=== PATIENT | male | born 1965 | race Caucasian/White ===

== ENCOUNTER 2024-04-11 11:49 | Inpatient (IN) | payer OTHER, SELFPAY ==
[2024-04-10 11:54] VITALS: BP 137/96
--- NOTE | 2024-04-10 13:29 | ED.SKININJ ---
HPI-Injury
General
Chief Complaint: Bite
Source: patient
Exam Limitations: none
Time Seen by Provider: 04/10/24 13:14
History of Present Illness-Injury
Initial Injury comments:
58-year-old male presents with cat bite to right arm he sustained today. He states it was early this morning he rake his 2 cats apart from fighting a bit on the right wrist. He now notes increasing redness swelling and pain to the forearm on the
right side. He is not diabetic. Initially seen at the urgent care and sent here for further evaluation. He notes chills but denies measurable fever. He notes increased pain when he tries to move his fingers. No other complaints at this time
Past History
Past History
ED Past Medical History: GERD, HTN and Other (Chronic back pain, Hiatel hernia)
ED Past Surgical History: Orthopedic and Other (Hernia surgery)
Social History
Tobacco: Smoker
Alcohol: Occasional
Drug: None
Personal:
Living: with family
Employment: Not employed
Family History
Family History: Hypertension
Phy Exam
Physical Exam
Physical Exam:
General: Well-appearing male no acute respiratory distress
HEENT: Normocephalic atraumatic
Skin: Multiple puncture wounds to the volar right wrist and dorsal right wrist with surrounding erythema. Erythema spreads to the proximal forearm. This is swollen in this area and tender.
Musculoskeletal exam: Patient is able to move his fingers on his right hand however its painful in his forearm to do so.
Vascular: 2+ radial pulse right wrist
Neurologic: Good sensation right hand
Heart: Regular rate and rhythm
Lungs: Clear no wheeze
Course
Orders/Labs/Results
Orders:
Orders
04/10/24 13:32
Complete Blood Count/With Diff Urgent
Comprehensive Metabolic Panel Urgent
04/10/24 14:00
Ampicillin/Sulbactam 3 G [Unasyn] 3 gm 0.9% Sodium Chloride 100 ml [Nss] 100 ml IV NOW
Abnormal Lab Results
04/10/24
13:32
WBC 12.0 H 10^3/uL
(4.8-10.8)
RBC 4.45 L 10^6/uL
(4.70-6.10)
Absolute Neuts (auto) 9.9 H 10^3/uL
(1.4-6.5)
Absolute Lymphs (auto) 1.1 L 10^3/uL
(1.2-3.4)
Absolute Monos (auto) 0.9 H 10^3/uL
(0.1-0.6)
Neutrophils % 82.2 H %
(42.2-75.2)
Lymphocytes % 9.0 L %
(20.5-51.1)
BUN 22 H mg/dl
(9-20)
Creatinine 0.6 L mg/dL
(0.7-1.3)
Alkaline Phosphatase 30 L U/L
(38-126)
04/10/24 13:32
04/10/24 13:32
Vital Signs
Initial and Last Documented VS:
Initial Vital Signs
Temp Pulse Resp BP Pulse Ox
98.9 F 84 17 137/96 96
04/10/24 11:54 04/10/24 11:54 04/10/24 11:54 04/10/24 11:54 04/10/24 11:54
Last Documented Vital Signs
Temp Pulse Resp BP Pulse Ox
98.9 F 84 18 137/96 96
04/10/24 11:54 04/10/24 11:54 04/10/24 11:54 04/10/24 11:54 04/10/24 11:54
MDM/Problems Addressed
Differential Diagnosis Includes:
Cat bite with surrounding cellulitis to the right forearm. Vitals are stable but he does subjectively note chills. This is rapidly progressed since this morning. will check labs. Consider IV antibiotics. Patient may benefit from admission to
hospital
*Critical Care Note
Total Time (30-74mins, 75-104mins- exclusive of procedures): Not Applicable
Update Note
Update Note:
White blood cell count is 12,000. Concerned about potential rapidly progressing infection of the right forearm secondary to cat bite. Unasyn ordered will admit to hospital
ED Attending Note
-
Portions of this chart may have been created with voice recognition software.� Occasional wrong word or��sound alike� substitutions may have occurred due to the inherent limitations of voice recognition software.
Discharge Plan
Departure
Patient Disposition: Admit
Date of Disposition: 04/10/24
Time of Disposition: 14:22
Admit to: Med/Surg
Presentation/result/management discussed w/ accepting MD/DO: Hospitalist
Discharge Problem:
Cellulitis
Prescriptions:
No Action
meloxicam 15 MG tablet
15 mg PO DAILY
gabapentin 300 MG capsule
300 mg PO TID
omeprazole 20 MG tablet,delayed release (DR/EC)
20 mg PO DAILY
naproxen sodium [Aleve] 220 MG tablet
220 mg PO Q12 PRN (Reason: pain/discomfort)
ibuprofen [Advil] 200 MG tablet
400 mg PO Q6 PRN (Reason: pain/discomfort)
ondansetron 4 MG tablet,disintegrating
4 mg PO TIDPRN PRN (Reason: NAUSEA) Qty: 15 0RF
Referrals:
Pavithra Alva DO [Family Provider] -
Interventions
Interventions:
*Risk Screen - Suicide Last Done: 04/10/24 11:58
*General Assessment Last Done: 04/10/24 13:20
*Neglect/Abuse Screening Last Done: 04/10/24 11:58
ED- Fall Risk Assessment Last Done: 04/10/24 13:20
*ED COVID-19 Vaccine History Last Done: 04/10/24 13:20
ED-Skin Assessment Last Done: 04/10/24 13:20
Discharge Date and Time
Print Language: NEPALESE
[2024-04-10 13:45] LABS: % Basophils 0.2 % (0-2); % Eosinophils 0.8 % (0-6); % Immature Granulocytes 0.2 % (0-0.5); % Monocytes 7.6 % (1.7-9.3); % Neutrophils 82.2 % (42.2-75.2); Absolute Eosinophils 0.1 10^3/uL (0-0.7); Absolute Lymphocytes 1.1 10^3/uL (1.2-3.4); Absolute Monocytes 0.9 10^3/uL (0.1-0.6); Absolute Neutrophils 9.9 10^3/uL (1.4-6.5); Hematocrit 40.2 % (39.0-52.0); Hemoglobin 13.6 g/dL (13.0-18.0); Mean Corp Hgb Conc. 33.8 g/dL (33.0-37.0); Mean Corpuscular Hgb 30.6 pg (27.0-31.0); Mean Corpuscular Volume 90.3 fL (80.0-94.0); Mean Platelet Volume 9.7 fL (7.4-10.4); Nucleated Red Blood Cells % 0 % (-); Platelet Count 226 10^3/uL (130-400); Red Blood Cell Count 4.45 10^6/uL (4.70-6.10); Red Cell Dist. Width 14.3 % (11.5-14.5)
[2024-04-10 13:58] LABS: ALT (SGPT) 23 U/L (0-50); AST (SGOT) 31 U/L (17-59); Albumin 4.6 g/dl (3.5-5.0); Alkaline Phosphatase 30 U/L (38-126); Blood Urea Nitrogen 22 mg/dl (9-20); Calcium 9.2 mg/dl (8.4-10.2); Carbon Dioxide 30 mmol/L (22-30); Chloride 103 mmol/L (98-107); Glucose 96 mg/dl (70-99); Potassium 4.3 mmol/L (3.5-5.1); Sodium 141 mmol/L (135-145); Total Bilirubin 0.6 mg/dl (0.2-1.3); Total Protein 7.2 g/dl (6.3-8.2); eGFR > 60.00
--- NOTE | 2024-04-10 14:35 | HPS.HSE ---
Family Physician
-
Family Physician: Pavithra Alva
Chief Complaint
-
swelling and redness right arm
History of Present Illness
58-year-old male past medical history of hypertension, GERD, hiatal hernia, chronic back pain, presenting with cat bite to the right arm which he sustained today. He notes increasing redness and swelling and pain to the forearm on the right side.
He went to urgent care and was sent to the emergency room. He has chills but denies fever. He has increased pain when he tries to move his fingers.
He smokes a pack of cigarettes every 2 days. He denies alcohol. He uses marijuana sometimes.
Medical History
Past Medical History
Past Medical History: Reports Other (hypertension, GERD, hiatal hernia, chronic back pain,)
Past Surgical History: Reports None
Social History
Tobacco: Smoker
Alcohol: None
Drug: Marijuana
Family History
Family History: Not pertinent
Allergies / Home Medications
Allergies reflects when Allergies were last updated in [facility].
Home Medications with original date entered in [facility]
Allergy/Medication List:
Allergies
Allergy/AdvReac Type Severity Reaction Status Date / Time
venom-honey bee Allergy Intermediate Swelling Verified 04/10/24 12:34
[bee venom (honey bee)]
buprenorphine [From Butrans] Allergy Unknown Verified 04/10/24 12:34
cyclobenzaprine HCl Allergy Hives Verified 04/10/24 12:34
[From Flexeril]
Home Medications
gabapentin 300 mg capsule 300 mg PO TID 04/28/14
ibuprofen 200 mg tablet (Advil) 400 mg PO Q6 PRN pain/discomfort 04/28/14
meloxicam 15 mg tablet 15 mg PO DAILY 04/28/14
naproxen sodium 220 mg tablet (Aleve) 220 mg PO Q12 PRN pain/discomfort 04/28/14
omeprazole 20 mg tablet,delayed release 20 mg PO DAILY 04/28/14
ondansetron 4 mg disintegrating tablet 4 mg PO TIDPRN PRN NAUSEA #15 tabs 04/28/14
Review of Systems
-
History Source: Patient
A 12 point ROS was completed and negative except as noted: Yes
Constitutional: Reports No Symptoms
EENT: Reports No Symptoms
Respiratory: Reports No Symptoms
Cardiac: Reports No Symptoms
Abdomen/GI: Reports No Symptoms
: Reports No Symptoms
Musculoskeletal: Reports No Symptoms
Skin: Reports See HPI
Neurological: Reports No Symptoms
Endocrine: Reports No Symptoms
Hematologic/Lymphatic: Reports No Symptoms
Psych: Reports No Symptoms
Physical Exam
Vital Signs
Vital Signs
Temp Pulse Resp BP Pulse Ox
98.9 F 84 18 137/96 96
04/10/24 11:54 04/10/24 11:54 04/10/24 11:54 04/10/24 11:54 04/10/24 11:54
Physical Exam
General: Well Developed, Well Nourished and No Apparent Distress
HEENT: NormoCephalic, Moist mucous membranes and Atraumatic
Respiratory: Clear
Cardiac: S1/S2 and Regular Rhythm; No Murmur or Rub
GI: Soft, Non Tender, Non Distended and Normal Bowel Sounds; No Organomegaly
Rectal: Deferred by Provider
Musculoskeletal: No Clubbing, No Cyanosis and No Edema
Skin: Other (right forearm erythema ); No Rash
Neuro: Nonfocal/grossly intact
Laboratory Results
-
04/10/24 13:32
04/10/24 13:32
Laboratory Results
Total Bilirubin 0.6 mg/dl (0.2-1.3) 04/10/24 13:32
AST 31 U/L (17-59) 04/10/24 13:32
ALT 23 U/L (0-50) 04/10/24 13:32
Alkaline Phosphatase 30 U/L (38-126) L 04/10/24 13:32
Data Reviewed
-
Lab Data: Labs Reviewed by me
Old Records: Reviewed
Impression/Plan
-
IMPRESSION:
PLAN:
# Cat bite cellulitis of right forearm
-Unasyn
-Toradol for pain
Essential hypertension
GERD/hiatal hernia
-Continue omeprazole
Chronic back pain
-Continue buprenorphine, gabapentin
Active smoker
Marijuana user
Full code
DVT prophylaxis�SCDs
Regular diet
[2024-04-10 15:01] VITALS: BP 134/76
[2024-04-10] MEDS: UNASYN IV ×2 (15:01→21:58)
[2024-04-10 15:02] VITALS: BMI 17.5
[2024-04-10 16:26] VITALS: BP 152/76; BMI 17.9
[2024-04-10] MEDS: NEURONTIN 600 MG PO (21:01)
[2024-04-10 23:22] VITALS: BP 97/47
[2024-04-11] MEDS: UNASYN IV ×4 (03:02→21:57)
[2024-04-11 06:45] LABS: % Basophils 0.3 % (0-2); % Eosinophils 2.1 % (0-6); % Immature Granulocytes 0.4 % (0-0.5); % Lymphocytes 13.2 % (20.5-51.1); Absolute Eosinophils 0.2 10^3/uL (0-0.7); Absolute Lymphocytes 1.5 10^3/uL (1.2-3.4); Absolute Monocytes 1.4 10^3/uL (0.1-0.6); Absolute Neutrophils 8.2 10^3/uL (1.4-6.5); Hematocrit 40.3 % (39.0-52.0); Hemoglobin 13.4 g/dL (13.0-18.0); Mean Corp Hgb Conc. 33.3 g/dL (33.0-37.0); Mean Corpuscular Hgb 30.9 pg (27.0-31.0); Mean Corpuscular Volume 93.1 fL (80.0-94.0); Mean Platelet Volume 10.1 fL (7.4-10.4); Nucleated Red Blood Cells % 0 % (-); Platelet Count 212 10^3/uL (130-400); Red Blood Cell Count 4.33 10^6/uL (4.70-6.10); Red Cell Dist. Width 14.3 % (11.5-14.5); White Blood Cell Count 11.3 10^3/uL (4.8-10.8)
[2024-04-11 06:56] LABS: ALT (SGPT) 18 U/L (0-50); AST (SGOT) 22 U/L (17-59); Albumin 3.8 g/dl (3.5-5.0); Alkaline Phosphatase 27 U/L (38-126); Blood Urea Nitrogen 16 mg/dl (9-20); Calcium 8.8 mg/dl (8.4-10.2); Carbon Dioxide 29 mmol/L (22-30); Chloride 102 mmol/L (98-107); Estimated Creatinine Clearance 86 ml/min; Glucose 109 mg/dl (70-99); Potassium 3.9 mmol/L (3.5-5.1); Sodium 140 mmol/L (135-145); Total Bilirubin 0.8 mg/dl (0.2-1.3); Total Protein 6.2 g/dl (6.3-8.2); eGFR > 60.00
[2024-04-11 07:00] VITALS: BP 126/76
--- NOTE | 2024-04-11 08:13 | W.PN.HOSP.TC ---
Today's Communication/Plan
-
Stat imaging studies of the right forearm
Consult Ortho, keep patient n.p.o. until Ortho sees the patient
IV fluid
Continue with IV antibiotics/elevate forearm
Tetanus shot
monitor right upper extremity pulse/monitor for worsening pain
Start home dose of Subutex to avoid withdrawal
Place the patient back on his home medication including clonazepam and BuSpar
Change status to inpatient/patient will require IV antibiotics
Assessment / Plan
Assessment / Plan
Physical Exam
General: Well Developed, Well Nourished and No Apparent Distress
HEENT: Normocephalic, Moist mucous membranes and Atraumatic
Respiratory: Clear
Cardiac: S1/S2 and Regular Rhythm; No Murmur or Rub
GI: Soft, Non Tender, Non Distended and Normal Bowel Sounds; No Organomegaly
Rectal: No bleeding.
Musculoskeletal: swelling/ erythema/ tenderness , cant extend right fingers.
Skin: No Rash
Neuro: Nonfocal/grossly intact
Psych: calm, no agitation
# Cat bite cellulitis of right forearm
Seems extensive from below right elbow to fingers with swelling and tender right right area, painful limited movements of right fingers.
Will do stat imaging studies, will d/w radiology if CT Vs MRI
Stat consult to ortho, concern for septic arthritis, worsening swelling.
Elevate the forearm
Keep NPO until ortho sees the pt
-c/w high dose Unasyn
- will order Tetanus booster shot
-Toradol for pain
Consult ID, help appreciated
#Essential hypertension
GERD/hiatal hernia
-Continue omeprazole
Chronic pain syndrome with opioid dependency
-Continue buprenorphine, gabapentin
# Depression
c/w Clonazepam and BuSpar
Mood is pleasant
# Active smoker/ Marijuana user
Full code
DVT prophylaxis�SCDs
Regular diet
Total time spent to see the patient on the floor, examine the patient, review data and lab results, discuss treatment plan with patient, nursing staff around 55 minutes
Anticipated Discharge: 24 - 48 hours
Subjective/Interval History
-
Date of Service: April 11, 2024
No sob
No chest pain
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
Objective Data
-
Labs:
Laboratory Results
04/11/24
05:19
WBC 11.3 H
Hgb 13.4
Hct 40.3
Plt Count 212
Sodium 140
Potassium 3.9
Chloride 102
Carbon Dioxide 29
BUN 16
Creatinine 0.7
Glucose 109 H
Calcium 8.8
Total Bilirubin 0.8
AST 22
ALT 18
Alkaline Phosphatase 27 L
Vital Signs:
Vital Signs
Temp Pulse Resp BP Pulse Ox
98.2 F 65 17 97/47 97
04/10/24 23:22 04/10/24 23:22 04/10/24 23:22 04/10/24 23:22 04/10/24 23:22
I&O
04/10/24 04/11/24 04/12/24
06:59 06:59 06:59
Intake Total 180 / 180
Balance 180 / 180
[2024-04-11] MEDS: PROTONIX 40 MG PO (09:15)
[2024-04-11] MEDS: SUBUTEX 8 MG SL ×3 (09:15→21:01)
[2024-04-11] MEDS: D5/0.9% SODIUM CHLORIDE 1000 IV ×2 (09:16→18:55)
[2024-04-11] MEDS: NEURONTIN 600 MG PO ×2 (09:16→20:03)
[2024-04-11] MEDS: BUSPAR 10 MG PO ×3 (09:20→21:01)
--- NOTE | 2024-04-11 10:05 | CON.ORTHO ---
Consultation - Orthopedics
History
HPI: 58-year-old male presented to the emergency department with complaints of right forearm swelling and redness. He was subsequently mated to the medical service for IV antibiotics. Orthopedics consulted for further evaluation and treatment.
Reports that yesterday about 3 AM he was his 2 cats were fighting when he was bitten on his right forearm. He presented to an urgent care yesterday who recommended presentation to the emergency department for further evaluation and
treatment. He does think that the swelling is getting worse. He notes some pain when attempting to flex and extend his fingers in his forearm. Denies any hand pain. Denies significant wrist pain.
Allergies / Home Medications
Past medical history: Hypertension, GERD, hiatal hernia, chronic back pain
Past surgical history. None documented
Family history: Not pertinent
Social history: Smoker daily, occasional marijuana use
Allergy/AdvReac Type Severity Reaction Status Date / Time
venom-honey bee Allergy Intermediate Swelling Verified 04/10/24 12:34
[bee venom (honey bee)]
buprenorphine [From Butrans] Allergy Unknown Verified 04/10/24 12:34
cyclobenzaprine HCl Allergy Hives Verified 04/10/24 12:34
[From Flexeril]
�Medication �Instructions �Recorded
gabapentin 300 mg capsule 600 mg PO BID Pain 04/28/14
ibuprofen 200 mg tablet (Advil) 400 mg PO Q6 PRN pain/discomfort 04/28/14
naproxen sodium 220 mg tablet 220 mg PO Q12 PRN pain/discomfort 04/28/14
(Aleve)
ondansetron 4 mg disintegrating 4 mg PO TIDPRN PRN NAUSEA #15 tabs 04/28/14
tablet
buprenorphine HCl 8 mg sublingual 8 mg sublingual 3XD 04/11/24
tablet
buspirone 10 mg tablet 10 mg PO TID Mental Health/Anxiety 04/11/24
clonazepam 1 mg tablet 1 mg PO BID Mental Health/Anxiety 04/11/24
clonazepam 1 mg tablet 1 mg PO DAILY PRN anxiety 04/11/24
gabapentin 300 mg capsule 600 mg PO PRN PRN neuropathic pain 04/11/24
tizanidine 4 mg capsule 4 mg PO BID PRN pain 04/11/24
Vital Signs / Lab Results
Temp Pulse Resp BP Pulse Ox
98.1 F 64 18 126/76 95
04/11/24 07:00 04/11/24 07:00 04/11/24 07:00 04/11/24 07:00 04/11/24 07:00
04/11/24 05:19
04/11/24 05:19
10 point review systems reviewed and negative unless otherwise stated
General: No acute distress, on telephone, supine in bed
Musculoskeletal right upper extremity
There are several small punctate wounds noted over the distal forearm proximal to the wrist both on the volar and dorsal aspect with some small scabbing
There is no drainage or significant fluctuance palpable
There is some very mild erythema over the mostly volar aspect of forearm to proximal forearm
There is some pain elicited volar forearm with flexion extension of digits
There is no swelling erythema in hand or digits
There is no tenderness palpation over flexor tendon sheath and digits
Sensation is intact to light touch office patient distally
There is really no tenderness palpation along the extensor tendons forearm
There is some mild to moderate tenderness palpation elicited with palpation volar flexor tendons
Patient able to flex and extend elbow without difficulty or significant pain
There is really very minimal to no tenderness palpation over radiocarpal joint there is no micromotion tenderness with passive motion of the radiocarpal joint
Diagnostic studies
None performed
Assessment / Plan
58-year-old male hospital day 1 right forearm cellulitis status post cat bite. Does not appear clinically to have involvement radiocarpal joints. No concerns based on clinical examination currently for septic wrist. Do suspect this is likely a
cellulitis versus myositis of volar forearm. I did speak with hospitalist who is planning on ordering an MRI to rule out fluid collection versus abscess. I would recommend continued IV antibiotics elevation and ice to the right forearm. No plans
for surgical intervention at this time. Will also order plain radiographs to rule out radiopaque foreign bodies. My hope is that this will continue to improve with IV antibiotics. I think the only real surgical indication based on the location of
his discomfort would be a fluid collection or abscess in forearm. Does not appear to involve the radiocarpal joint. There does not appear to be any evidence of pyogenic flexor tenosynovitis in the hand. Will continue to follow clinically.
[2024-04-11] MEDS: KLONOPIN 1 MG PO ×2 (11:11→20:03)
[2024-04-11 11:21] LABS: Erythrocyte Sed Rate 13 mm/hour (0-20)
--- NOTE | 2024-04-11 15:27 | CM ---
met with patient at bedside.patient lives with spouse in 2 story home with adelfo,his bed and bat.he has no dme.his on the second level,he amb i (sometimes uses a cane for cbp)and is I with his adl.he has never had a vn or an episode of ip rehab.
PCP: dr tien donaldson Pharmacy : [facility] in [place]
PMH: htn,gerd,chronic back pain,smoker,occasional marijuana,hiatal hernia
patient is adm following a cart bite with right forearm cellulitis,iv unasyn,ivf,subultex,ortho cs.patient will have no needs when dc home.Plan;home with no needs.
--- NOTE | 2024-04-11 16:52 | CON.ID ---
Consultation
-
Date/Time Consultation Requested: 04/11/24 6:48
Date/Time Consultation Performed: 04/11/24 16:52
Requesting Provider: Dr Thompson
Performing Provider: Dr Dempsey
Reason for Consultation: cat bite cellulitis
Chief Complaint / Past History
Chief Complaint
swelling and redness right arm
History of Present Illness
Mr Marion is a 58 year old male with without significant past medical history and no known liver disease presentd here 04/10 after being bitten by one of his cats breaking up a fight, there has been redness and swelling and tenderness of the R
forearm and limited range of motion of several of the digits. Reports chills but no fevers. No fluctuance
Since arrival here he has been afebrile, bp stable, wbc initially 12 now 11, hgb 13, plt 212, L shift present on arrival now resolved, cr 0.7, t bili 0.8, ast 22, alt 18, crp 27, esr 13, MRI: extensive edema without focal collection or abscess, no
osteo, no foreign bodies, myositis noted, currently on unasyn, had Tdap in the ER, arm elevated on exam.
Past History
Additional Past Medical History:
hypertension, GERD, hiatal hernia, chronic back pain
Additional Past Surgical History:
None
Allergy History:
venom-honey bee [bee venom (honey bee)] Allergy (Intermediate, Verified 04/10/24 12:34)
Swelling
buprenorphine [From Butrans] Allergy (Verified 04/10/24 12:34)
Unknown
cyclobenzaprine HCl [From Flexeril] Allergy (Verified 04/10/24 12:34)
Hives
Medications Reviewed: Yes
Social History
Tobacco: Smoker
Alcohol: None
Drug: Marijuana
Family History
Family History: Not Pertinent
Review of Systems
Review of Systems
General: Chills; Negative Fever
All systems: All other systems were reviewed and were negative
Vital Signs
Temp Pulse Resp BP Pulse Ox
98.1 F 64 18 126/76 95
04/11/24 07:00 04/11/24 07:00 04/11/24 07:00 04/11/24 07:00 04/11/24 07:00
Physical Exam
Physical Exam
Constitutional: No Acute Distress
Cardiovascular: Regular Rate and S1/S2; Negative Murmur or Rub
Pulmonary: Clear and Symmetric; Negative Wheezes, Rales or Rhonchi
Gastrointestinal: Soft, Non Tender, Non Distended and Normal Bowel Sounds
Extremities: Other (mild swelling, erythema of the right arm, puncture aguirre on the wrist, decreased range of motion of several fingers)
Skin: Warm and Dry; Negative Rash or Jaundice
Lab / Diagnostic Study Results
04/11/24 05:19
04/11/24 05:19
Abs Immat Gran (auto) 0.0 10^3/uL (0-0.05) 04/11/24 05:19
Absolute Neuts (auto) 8.2 10^3/uL (1.4-6.5) H 04/11/24 05:19
Absolute Lymphs (auto) 1.5 10^3/uL (1.2-3.4) 04/11/24 05:19
Absolute Monos (auto) 1.4 10^3/uL (0.1-0.6) H 04/11/24 05:19
Absolute Basos (auto) 0.0 10^3/uL (0-0.2) 04/11/24 05:19
Immature Gran % 0.4 % (0-0.5) 04/11/24 05:19
Neutrophils % 72.0 % (42.2-75.2) 04/11/24 05:19
Lymphocytes % 13.2 % (20.5-51.1) L 04/11/24 05:19
Monocytes % 12.0 % (1.7-9.3) H 04/11/24 05:19
Eosinophils % 2.1 % (0-6) 04/11/24 05:19
Basophils % 0.3 % (0-2) 04/11/24 05:19
ESR 13 mm/hour (0-20) 04/11/24 10:48
C-Reactive Protein 27.00 mg/L (0.0-10.00) H 04/11/24 10:48
Assessment / Plan
Cat Bite Cellulitis - provoked bite
Tenosynovitis
- tdap administered in the ER
- unasyn 3 gm iv q6 hours - continue IV pending further clinical improvement
- elevation reviewed with patient
- no known liver disease
- follow physical exam
[2024-04-11 23:22] VITALS: BP 98/62
[2024-04-12] MEDS: D5/0.9% SODIUM CHLORIDE 1000 IV ×2 (02:16→11:22)
[2024-04-12] MEDS: TORADOL 10 MG IV ×2 (02:23→11:27)
[2024-04-12] MEDS: UNASYN IV ×4 (03:26→21:38)
[2024-04-12 05:38] LABS: Hematocrit 36.5 % (39.0-52.0); Hemoglobin 12.1 g/dL (13.0-18.0); Mean Corp Hgb Conc. 33.2 g/dL (33.0-37.0); Mean Corpuscular Hgb 31.1 pg (27.0-31.0); Mean Corpuscular Volume 93.8 fL (80.0-94.0); Platelet Count 187 10^3/uL (130-400); Red Blood Cell Count 3.89 10^6/uL (4.70-6.10); Red Cell Dist. Width 14.4 % (11.5-14.5); White Blood Cell Count 9.1 10^3/uL (4.8-10.8)
[2024-04-12 06:11] LABS: Blood Urea Nitrogen 11 mg/dl (9-20); Calcium 8.4 mg/dl (8.4-10.2); Carbon Dioxide 29 mmol/L (22-30); Chloride 104 mmol/L (98-107); Estimated Creatinine Clearance 100 ml/min; Glucose 113 mg/dl (70-99); Potassium 3.9 mmol/L (3.5-5.1); Sodium 139 mmol/L (135-145); eGFR > 60.00
[2024-04-12] MEDS: NEURONTIN 600 MG PO ×2 (07:36→20:03)
[2024-04-12] MEDS: PROTONIX 40 MG PO (07:36)
[2024-04-12] MEDS: BUSPAR 10 MG PO ×3 (07:36→21:38)
[2024-04-12] MEDS: SUBUTEX 8 MG SL ×3 (07:37→21:38)
--- NOTE | 2024-04-12 07:44 | W.PN.ORTHO ---
Today's Communication / Plan
-
58 yo M right forearm cellulitis/myositis s/p cat bite
MRI was reviewed and no evidence of abscess/fluid collection amenable to I and D
Had a long discussion with the patient. He does have some improvement today in symptoms. Would not recommend any orthopedic intervention in light of improvement clinically and MRI findings
Continue IV antibiotics per ID recs. Would anticipate some drainage of superficial pustules at bite site. If this is the case, could consider betadine soaks
Pain control
Continue elevation/ ice to right upper extremity
Please reach out with questions or concerns
Subjective
.
.:
Patient resting comfortably in bed. Does feel like he has had some improvement. Continues to have some difficulty and associated discomfort when flexing and extending fingers.
Vital Signs and Labs
.
Vital Signs and Labs:
Lab Results
04/12/24 05:08
04/12/24 05:08
Temp Pulse Resp BP Pulse Ox
98.3 F 58 18 98/62 95
04/11/24 23:22 04/11/24 23:22 04/11/24 23:22 04/11/24 23:22 04/11/24 23:22
Physical Exam
-
MSK RUE
Minimal erythema over volar forearm, with some improvement compared to yesterday
Forearm soft and compressible without significant pain
Patient is able to actively incompletely extend fingers with some pain elicited over volar forearm
Small pustules noted over area of cat bit
SILT distally
[2024-04-12 08:37] VITALS: BP 123/71
[2024-04-12] MEDS: KLONOPIN 1 MG PO ×2 (09:12→20:03)
--- NOTE | 2024-04-12 12:56 | W.PN.HOSP.TC ---
Today's Communication/Plan
-
continue IV Abx and RUE elevation
follow ID and Ortho recs
Assessment / Plan
Assessment / Plan
Assessment:
Cat bite cellulitis of right forearm
- s/p tetanus booster
- s/p MRI: Extensive diffuse edema/swelling of the subcutaneous fat in the forearm. No focal collection or abscess of the superficial or deep soft tissues. No evidence osteomyelitis. Subtle intramuscular edema involving the flexor digitorum
superficialis muscle, muscle strain versus possible subtle myositis. There also appears to be tendinosis of the flexor digitorum tendon. Mild degenerative change at the wrist. Findings suggest minor scapholunate dissociation.
- Ortho consulted; recommended forearm elevation. no surgical intervention
- ID following; continue Unasyn.
Essential hypertension
- not on home meds, will monitor
GERD/hiatal hernia
- continue omeprazole
Chronic pain syndrome with opioid dependency
- continue buprenorphine, gabapentin
Depression
- continue Clonazepam and BuSpar
- Mood is pleasant
Active smoker/Marijuana user
DVT ppx: SCDs
Code: Full
Anticipated Discharge: 24 - 48 hours
Subjective/Interval History
-
Date of Service: April 12, 2024
patient reports some improvement, but has some difficulty with flexing/extending fingers
no fevers
Objective Data
-
Labs:
Laboratory Results
04/12/24
05:08
WBC 9.1
Hgb 12.1 L
Hct 36.5 L
Plt Count 187
Sodium 139
Potassium 3.9
Chloride 104
Carbon Dioxide 29
BUN 11
Creatinine 0.6 L
Glucose 113 H
Calcium 8.4
Vital Signs:
Vital Signs
Temp Pulse Resp BP Pulse Ox
98.2 F 75 16 123/71 97
04/12/24 08:37 04/12/24 08:37 04/12/24 08:37 04/12/24 08:37 04/12/24 08:37
I&O
04/11/24 04/12/24 04/13/24
06:59 06:59 06:59
Intake Total 180 / 180 3000 / 3000
Balance 180 / 180 3000 / 3000
Physical Exam
-
General: No Apparent Distress
HEENT: Normocephalic and Atraumatic
Respiratory: Negative Wheezes
Cardiac: Regular Rhythm and S1/S2
GI: Soft
Genito-urinary: No Costovertebral Tender
Musculoskeletal: Other (R forearm edema)
Neuro: AO x 3
Hematologic / Lymphatic: No Lymphadenopathy
Psych: Calm
Data Reviewed
-
Total Time Spent with Patient (in minutes): 42
Labs: Labs Reviewed by me
--- NOTE | 2024-04-12 14:20 | CM ---
Met with patient at bedside.
Dx: cat bite cellulitis
Cont w/IV abx.
no anticipated needs at this time.
PLAN: Home, no needs anticipated
[2024-04-12] MEDS: D5/0.9% SODIUM CHLORIDE IV (14:57)
--- NOTE | 2024-04-12 15:06 | W.PN.UPDATE ---
Update Note
Progress Note Update
I was unable to locate patient in his room, bathroom, visitors area or halls of his floor. RN and community director unsure where he might be.
Chart reviewed and plans unchanged:
Cat Bite Cellulitis - provoked bite
Tenosynovitis
- tdap administered in the ER
- unasyn 3 gm iv q6 hours - continue IV pending further clinical improvement
- elevation reviewed with patient
- no known liver disease
- follow physical exam
Further recommendations pending reevaluation of the patient when he is available.
[2024-04-12 15:36] VITALS: BP 134/73
[2024-04-12 23:13] VITALS: BP 105/56
[2024-04-13] MEDS: UNASYN IV ×4 (03:33→21:32)
[2024-04-13 05:42] LABS: Hematocrit 36.1 % (39.0-52.0); Hemoglobin 11.9 g/dL (13.0-18.0); Mean Corpuscular Hgb 30.1 pg (27.0-31.0); Mean Corpuscular Volume 91.2 fL (80.0-94.0); Mean Platelet Volume 9.8 fL (7.4-10.4); Platelet Count 201 10^3/uL (130-400); Red Blood Cell Count 3.96 10^6/uL (4.70-6.10); Red Cell Dist. Width 14.2 % (11.5-14.5); White Blood Cell Count 7.9 10^3/uL (4.8-10.8)
[2024-04-13 06:03] LABS: Blood Urea Nitrogen 13 mg/dl (9-20); Calcium 8.6 mg/dl (8.4-10.2); Carbon Dioxide 31 mmol/L (22-30); Chloride 103 mmol/L (98-107); Estimated Creatinine Clearance 86 ml/min; Glucose 98 mg/dl (70-99); Potassium 4.1 mmol/L (3.5-5.1); Sodium 142 mmol/L (135-145); eGFR > 60.00
[2024-04-13 07:19] VITALS: BP 115/70
[2024-04-13 07:56] VITALS: BP 123/74
[2024-04-13] MEDS: BUSPAR 10 MG PO ×3 (08:28→21:32)
[2024-04-13] MEDS: KLONOPIN 1 MG PO ×2 (08:28→20:59)
[2024-04-13] MEDS: NEURONTIN 600 MG PO ×2 (08:28→20:59)
[2024-04-13] MEDS: PROTONIX 40 MG PO (08:28)
[2024-04-13] MEDS: SUBUTEX 8 MG SL ×3 (08:28→21:31)
--- NOTE | 2024-04-13 11:02 | PN.CDI ---
CDI
- -
CDI:
Physician Documentation Request
Admit Date: 04/11/24 11:49
Dear Doctor Christophe,
Please review the following and provide your response in the progress notes.
Clinical Indicators:
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
#...pt with BMI < 19 underweight range.
#CBW: 117 lbs 9.6 oz BMI 17.9 underweight range, 04/10.
Based on the above and your clinical assessment, please provide an associated diagnosis related to the abnormal BMI, such as:
BMI <19.o, underweight
BMI is not significant
Other(please specify)
BMI < or = to 19
Underweight
Weight Loss
Cachectic
Anorexia
Use of terms such as suspected, likely, concern for, or probable (associated with a specific diagnosis that is being evaluated, monitored, or treated as if it exists) are acceptable and can be coded in the inpatient setting, when documented at the
time of discharge.
Thank you,
Christina Anaya RN BSN CCDS
CDI Specialist
please contact via tiger text
Please use your independent medical judgment in providing your response.
--- NOTE | 2024-04-13 11:05 | W.PN.HOSP.TC ---
Addendum entered and electronically signed by Rafat Saeed MD 04/13/24 11:07:
BMI <19.o, underweight
Original Note:
Today's Communication/Plan
-
continue IV Abx and RUE elevation
follow ID recs
Assessment / Plan
Assessment / Plan
Assessment:
Cat bite cellulitis of right forearm
- s/p tetanus booster
- s/p MRI: Extensive diffuse edema/swelling of the subcutaneous fat in the forearm. No focal collection or abscess of the superficial or deep soft tissues. No evidence osteomyelitis. Subtle intramuscular edema involving the flexor digitorum
superficialis muscle, muscle strain versus possible subtle myositis. There also appears to be tendinosis of the flexor digitorum tendon. Mild degenerative change at the wrist. Findings suggest minor scapholunate dissociation.
- Ortho consulted; recommended forearm elevation. no surgical intervention
- ID following; continue Unasyn.
Essential hypertension
- not on home meds, will monitor
GERD/hiatal hernia
- continue omeprazole
Chronic pain syndrome with opioid dependency
- continue buprenorphine, gabapentin
Depression
- continue Clonazepam and BuSpar
- Mood is pleasant
Active smoker/Marijuana user
DVT ppx: SCDs
Code: Full
Anticipated Discharge: 24 - 48 hours
Subjective/Interval History
-
Date of Service: April 13, 2024
denies any new complaints at present, feels like R forearm is less swollen, less painful
Objective Data
-
Labs:
Laboratory Results
04/13/24 04/13/24
05:19 05:20
WBC 7.9
Hgb 11.9 L
Hct 36.1 L
Plt Count 201
Sodium 142
Potassium 4.1
Chloride 103
Carbon Dioxide 31 H
BUN 13
Creatinine 0.7
Glucose 98
Calcium 8.6
Vital Signs:
Vital Signs
Temp Pulse Resp BP Pulse Ox
98.6 F 71 14 123/74 94
04/13/24 07:56 04/13/24 07:56 04/13/24 07:56 04/13/24 07:56 04/13/24 07:56
I&O
04/12/24 04/13/24 04/14/24
06:59 06:59 06:59
Intake Total 3000 / 3000 1080 / 1080
Balance 3000 / 3000 1080 / 1080
Physical Exam
-
General: No Apparent Distress
HEENT: Normocephalic and Atraumatic
Respiratory: Negative Wheezes
Cardiac: Regular Rhythm and S1/S2
GI: Soft
Musculoskeletal: Other (less erythema, less edema compared to 24 hours prior. Able to extend/flex fingers more easily)
Neuro: AO x 3
Hematologic / Lymphatic: No Lymphadenopathy
Psych: Calm
Data Reviewed
-
Total Time Spent with Patient (in minutes): 41
Labs: Labs Reviewed by me
--- NOTE | 2024-04-13 12:17 | W.PN.ID1 ---
Date of Service
Date of Service: April 13, 2024
Today's Communication
- unasyn 3 gm iv q6 hours - continue IV pending further clinical improvement
Assessment / Plan
Cat Bite Cellulitis - provoked bite
Tenosynovitis
- tdap administered in the ER
- unasyn 3 gm iv q6 hours - continue IV pending further clinical improvement; eventual likely transition to orals
- elevation reviewed with patient
- no known liver disease
- follow physical exam
Chief Complaint
-: Other (cat bite cellulitis and tenosynovitis)
Subjective / Review of Systems
afebrile
bp stable
no events overnight
Vital Signs / Physical Exam
Vital Signs
Vital Signs
Temp Pulse Resp BP Pulse Ox
98.6 F 71 14 123/74 94
04/13/24 07:56 04/13/24 07:56 04/13/24 07:56 04/13/24 07:56 04/13/24 07:56
Physical Exam
Constitutional: No Acute Distress
Cardiovascular: Regular Rate and S1/S2; Negative Murmur or Rub
Pulmonary: Clear and Symmetric; Negative Wheezes or Rales
Gastrointestinal: Soft, Non Tender, Non Distended and Normal Bowel Sounds
Extremities: Other (slowly improving swelling and erythema; range of motion of the digits slowly improving)
Skin: Warm and Dry; Negative Rash or Jaundice
Objective Data
Lab Data
Lab Results
04/13/24 05:19
04/13/24 05:20
ESR 13 mm/hour (0-20) 04/11/24 10:48
Estimated Creat Clear 86 ml/min 04/13/24 05:20
Total Bilirubin 0.8 mg/dl (0.2-1.3) 04/11/24 05:19
AST 22 U/L (17-59) 04/11/24 05:19
ALT 18 U/L (0-50) 04/11/24 05:19
Alkaline Phosphatase 27 U/L (38-126) L 04/11/24 05:19
C-Reactive Protein 28.20 mg/L (0.0-10.00) H 04/13/24 05:20
Most recent labs reviewed.
Care Review
Plan reviewed with: Physician (Dr Saeed - location of patient - appreciate his help)
[2024-04-13 15:33] VITALS: BP 133/82
--- NOTE | 2024-04-13 16:13 | CM ---
Spoke with pt at bedside.
He said MD said he will probable be dc to home tomorrow for his cat bite.
He said he will drive him self home . His car is here.
Offered VN he declined need.
PLAN Home no needs
[2024-04-13 23:35] VITALS: BP 99/61
[2024-04-14] MEDS: UNASYN IV ×3 (04:11→15:10)
[2024-04-14 07:21] VITALS: BP 137/87
[2024-04-14] MEDS: PROTONIX 40 MG PO (07:37)
[2024-04-14] MEDS: NEURONTIN 600 MG PO (07:37)
[2024-04-14] MEDS: SUBUTEX 8 MG SL ×2 (07:38→15:10)
[2024-04-14] MEDS: BUSPAR 10 MG PO ×2 (07:38→15:10)
[2024-04-14] MEDS: KLONOPIN 1 MG PO (07:38)
--- NOTE | 2024-04-14 09:40 | W.PN.HOSP.TC ---
Today's Communication/Plan
-
continue Unasyn, eventual plan to switch to orals for DC if cleared by ID. possibly DC today.
Assessment / Plan
Assessment / Plan
Assessment:
Cat bite cellulitis of right forearm
- s/p tetanus booster
- s/p MRI: Extensive diffuse edema/swelling of the subcutaneous fat in the forearm. No focal collection or abscess of the superficial or deep soft tissues. No evidence osteomyelitis. Subtle intramuscular edema involving the flexor digitorum
superficialis muscle, muscle strain versus possible subtle myositis. There also appears to be tendinosis of the flexor digitorum tendon. Mild degenerative change at the wrist. Findings suggest minor scapholunate dissociation.
- Ortho consulted; recommended forearm elevation. no surgical intervention
- ID following; continue Unasyn, eventual plan to switch to orals for DC if cleared by ID.
Essential hypertension
- not on home meds, will monitor
GERD/hiatal hernia
- continue omeprazole
Chronic pain syndrome with opioid dependency
- continue buprenorphine, gabapentin
Depression
- continue Clonazepam and BuSpar
- Mood is pleasant
Active smoker/Marijuana user
DVT ppx: SCDs
Code: Full
Anticipated Discharge: Today
Subjective/Interval History
-
Date of Service: April 14, 2024
reports some improvement in edema and finger movement
Objective Data
-
Vital Signs:
Vital Signs
Temp Pulse Resp BP Pulse Ox
97.8 F 62 17 137/87 97
04/14/24 07:21 04/14/24 07:21 04/14/24 07:21 04/14/24 07:21 04/14/24 07:21
I&O
04/13/24 04/14/24 04/15/24
06:59 06:59 06:59
Intake Total 1080 / 1080 960 / 960
Balance 1080 / 1080 960 / 960
Physical Exam
-
General: No Apparent Distress
HEENT: Normocephalic and Atraumatic
Respiratory: Negative Wheezes
Cardiac: Regular Rhythm and S1/S2
GI: Soft and Nontender
Genito-urinary: No Costovertebral Tender
Neuro: AO x 3
Hematologic / Lymphatic: No Lymphadenopathy
Psych: Calm
Data Reviewed
-
Total Time Spent with Patient (in minutes): 42
Labs: Labs Reviewed by me
[2024-04-14 15:07] VITALS: BP 151/80
--- NOTE | 2024-04-14 15:34 | CM ---
He said MD said he will probable be dc to home today for his cat bite.
He said he will drive him self home . His car is here.
Offered VN he declined need.
PLAN Home no needs
--- NOTE | 2024-04-14 15:57 | W.PN.ID1 ---
Date of Service
Date of Service: April 14, 2024
Today's Communication
- unasyn 3 gm iv q6 hours while inpatient, on dc switch to augmentin 875/125 po bid x2 more weeks
- elevation reviewed with patient
- follow up with PCP
Assessment / Plan
Cat Bite Cellulitis - provoked bite
Tenosynovitis
- tdap administered in the ER
- unasyn 3 gm iv q6 hours while inpatient, on dc switch to augmentin 875/125 po bid x2 more weeks
- elevation reviewed with patient
- follow up with PCP
Chief Complaint
-: Other (cat bite cellulitis and tenosynovitis)
Subjective / Review of Systems
afebrile
bp stable
slowly improving strength and range of motion of the digits - requesting discharge
Vital Signs / Physical Exam
Vital Signs
Vital Signs
Temp Pulse Resp BP Pulse Ox
97.8 F 90 17 151/80 97
04/14/24 15:07 04/14/24 15:07 04/14/24 15:07 04/14/24 15:07 04/14/24 15:07
Physical Exam
Constitutional: No Acute Distress
Cardiovascular: Regular Rate and S1/S2; Negative Murmur or Rub
Pulmonary: Clear and Symmetric; Negative Wheezes or Rales
Gastrointestinal: Soft, Non Tender, Non Distended and Normal Bowel Sounds
Skin: Warm and Dry; Negative Rash or Jaundice
Objective Data
Lab Data
Lab Results
04/13/24 05:19
04/13/24 05:20
ESR 13 mm/hour (0-20) 04/11/24 10:48
Estimated Creat Clear 86 ml/min 04/13/24 05:20
Total Bilirubin 0.8 mg/dl (0.2-1.3) 04/11/24 05:19
AST 22 U/L (17-59) 04/11/24 05:19
ALT 18 U/L (0-50) 04/11/24 05:19
Alkaline Phosphatase 27 U/L (38-126) L 04/11/24 05:19
C-Reactive Protein 28.20 mg/L (0.0-10.00) H 04/13/24 05:20
Most recent labs reviewed.
Care Review
Plan reviewed with: Physician (Dr Christophe li)
--- NOTE | 2024-04-14 16:02 | W.DS.TRANS ---
DC Summary - Nursery Supervisor
-
Discharge Instructions:
Discharge Diagnosis/Procedures cat bite cellulitis
Diet Regular
Activity As tolerated
Instructions:
Stand-Alone Forms:
Changes to Home Medications: No
Discharge Medications:
DC Medications w/original date entered in [employer]
gabapentin 300 mg capsule 600 mg PO BID Pain 04/28/14
ibuprofen 200 mg tablet (Advil) 400 mg PO Q6 PRN pain/discomfort 04/28/14
naproxen sodium 220 mg tablet (Aleve) 220 mg PO Q12 PRN pain/discomfort 04/28/14
ondansetron 4 mg disintegrating tablet 4 mg PO TIDPRN PRN NAUSEA #15 tabs 04/28/14
buprenorphine HCl 8 mg sublingual tablet 8 mg sublingual 3XD Chronic pain syndrome 04/11/24
buspirone 10 mg tablet 10 mg PO TID Mental Health/Anxiety 04/11/24
clonazepam 1 mg tablet 1 mg PO BID Mental Health/Anxiety 04/11/24
clonazepam 1 mg tablet 1 mg PO DAILY PRN anxiety 04/11/24
gabapentin 300 mg capsule 600 mg PO PRN PRN neuropathic pain 04/11/24
tizanidine 4 mg capsule 4 mg PO BID PRN pain 04/11/24
amoxicillin 875 mg-potassium clavulanate 125 mg tablet 1 tab PO Q12H 14 days #28 tabs 04/14/24
Home Medication Changes
Pending Results: No
Total time spent discharging patient (in min): 41
== END 2024-04-14 17:13 | disposition home or self-care (01) | DRG 603 ==
LOC: 3 WEST ACU 11:49
PROVIDERS: Internal Medicine; Physician Assistant; ADMITTING PHYSICIAN Hospitalist; ATTENDING PHYSICIAN Internal Medicine; CONSULT PHYSICIAN Orthopaedic Surgery; EMERGENCY PHYSICIAN Emergency Medicine; FAMILY PHYSICIAN Family Medicine; OTHER PHYSICIAN Student in an Organized Health Care Education/Training Program
DX: L03.113 Cellulitis of right upper limb (principal); F11.20 Opioid dependence, uncomplicated; Z68.1 Body mass index [BMI] 19.9 or less, adult; F32.A Depression, unspecified; I10 Essential (primary) hypertension; M65.931 Unspecified synovitis and tenosynovitis, right forearm; S41.151A Open bite of right upper arm, initial encounter; W55.01XA Bitten by cat, initial encounter; F17.210 Nicotine dependence, cigarettes, uncomplicated; G89.4 Chronic pain syndrome; M54.9 Dorsalgia, unspecified; F12.90 Cannabis use, unspecified, uncomplicated; K44.9 Diaphragmatic hernia without obstruction or gangrene; K21.9 Gastro-esophageal reflux disease without esophagitis; F41.9 Anxiety disorder, unspecified; R63.6 Underweight; Z79.899 Other long term (current) drug therapy; Z88.8 Allergy status to other drugs, medicaments and biological substances
CPT/HCPCS: 73090; 73220; 80048; 80053; 85025; 85027; 85652; 86140; 90714; 96365; 99284; A9575

== ENCOUNTER 2024-06-10 17:52 | Emergency (ER) | payer OTHER, SELFPAY ==
[2024-06-10 17:56] VITALS: BP 148/90
--- NOTE | 2024-06-10 18:07 | ED.GENMED ---
ED Provider Triage
<Caryn Allan PA-C - Last Filed: 06/10/24 18:08>
-
Patient seen by provider in Triage?: Seen in Triage
Attestation: A medical screening examination has been initiated by a qualified medical provider. Based on the assessment performed at this time, it has been determined that an emergent medical condition may exist and the patient has been informed
that further medical evaluation and possible additional diagnostic testing may be needed.
HPI: 58yoM here with R flank pain radiating to RLQ. Mild pain x 2 weeks, worse x 2 days. +N/v. No urinary symptoms.
GENERAL: Alert , in no apparent distress
EYE: No visual abnormalities.
NECK: Trachea midline
ENT: No visible abnormalities.
LUNGS: No acute respiratory distress
NEUROLOGICAL: Alert and oriented
SKIN: Skin intact. No visible changes.
MUSCULOSKELETAL: Moving extremities normally
PSYCH: Normal and appropriate interaction.
This is a medical evaluation conducted in person to initiate diagnostic evaluation and provide initial therapeutics. Please see further documentation by the treating clinician.
Abdominal labs, UA, and CT abdomen ordered.
History of Present Illness
<Caryn Allan PA-C - Last Filed: 06/10/24 18:08>
General
Chief Complaint: Flank Pain
Time Seen by Provider: 06/10/24 19:26
<MAREN Chan - Last Filed: 06/10/24 21:53>
General
Source: patient
Exam Limitations: none
History of Present Illness
History of Present Illness:
This is a 58 year old female that comes in with c/o headache. States that this started 2 weeks ago and then started to get worse yesterday. States that the pain is in the right back and wraps around to the right abd. States that was nauseated and
felt cold States that last night the pain was so bad that it dropped him to the ground. States that the pain is worse when he moves. States that he was SOB with the pain, has nausea and vomiting yesterday. Denies any fever, chills, chest pain,
diarrhea, headache, dizziness, urinary burning.
Past History
<Caryn Allan PA-C - Last Filed: 06/10/24 18:08>
Past History
ED Past Medical History: GERD, HTN and Other (Chronic back pain, Hiatel hernia)
ED Past Surgical History: Orthopedic and Other (Hernia surgery)
Social History
Tobacco: Smoker
Alcohol: Occasional
Drug: None
Personal:
Living: with family
Employment: Not employed
Family History
Family History: Hypertension
<MAREN Chan - Last Filed: 06/10/24 21:53>
Past History
ED Past Medical History: Cancer (Melanoma), Psychiatric (Depression) and Other (Chronic back pain, Hiatal hernia, Chronic shoulder pain, Exzema, Tinnitis, )
ED Past Surgical History: Orthopedic (laminectomy, ) and Other (Hernia surgery X 2)
Social History
Alcohol: None
Review of Systems
<MAREN Chan - Last Filed: 06/10/24 21:53>
Review of Systems
All Other Systems: ROS reviewed and negative except as documented in HPI and ROS
Constitutional: Reports no symptoms; Denies fever or chills
EENT: Reports no symptoms
Respiratory: Reports trouble breathing (only with pain); Denies cough
Cardiac: Reports no symptoms; Denies chest pain
ABD/GI: Reports abdominal pain (Right sided), nausea and vomiting; Denies diarrhea
: Denies dysuria, frequency or urgency
Musculoskeletal: Reports back pain (Right lower back pain)
Skin: Reports no symptoms
Neurological: Reports no symptoms; Denies dizzy or headache
Psychiatric: Reports no symptoms
Phy Exam
<MAREN Chan - Last Filed: 06/10/24 21:53>
General Physical Exam
General Presentation: well appearing and no apparent distress
General age: appears stated age
General Skin: warm and dry
General Habitus: normal
General Mental: alert
General Hydration: appears well hydrated
ENT Exam
ENT Exam: TM's normal, pharynx normal and neck supple
Eye Exam
Eye Exam: EOMI
Cardiovascular Exam
Cardiovascular Exam: regular rate/rhythm, no edema, no murmur and normal peripheral pulses
Pulmonary Exam
Pulmonary Exam: lungs clear, no respiratory distress, no rales, chest non tender, no crackles, no rhonchi, no wheezing and no cough
Gastrointestinal Exam
Gastrointestinal Exam: normal bowel sounds, non tender, soft, no organomegaly, no pulsatile mass and non distended
Musculoskeletal Exam
Musculoskeletal Exam: full ROM and no edema
Skin Exam
Skin Exam: normal color, warm/dry, no rash and no petechia
Psychiatric Exam
Psychiatric Exam: normal mood/affect
Course
Kylelt;Caryn Allan PA-C - Last Filed: 06/10/24 18:08>
Orders/Labs/Results
Orders:
Orders
06/10/24 18:06
CT Abd/pel Without Iv Or Oral Urgent
Comment:
Reason For Exam: R flank pain radiating to RLQ
06/10/24 18:21
Complete Blood Count/With Diff Urgent
Comprehensive Metabolic Panel Urgent
Lipase Urgent
Urinalysis Reflex To Culture Urgent
Date Specimen was Collected: 06/10/24
Time Specimen was Collected: 18:02
Urine Microscopic Reflex Cult Urgent
06/10/24 20:03
Acetaminophen [Tylenol] 1,000 mg PO NOW STA
Ketorolac [Toradol] 30 mg IV NOW STA
06/10/24 21:25
Ketorolac [Toradol] 30 mg .ROUTE .STK-MED ONE
06/10/24 21:26
Ketorolac [Toradol] 60 mg IM NOW STA
Abnormal Lab Results
06/10/24
18:21
WBC 11.1 H 10^3/uL
(4.8-10.8)
Absolute Neuts (auto) 8.2 H 10^3/uL
(1.4-6.5)
Absolute Monos (auto) 1.4 H 10^3/uL
(0.1-0.6)
Lymphocytes % 12.4 L %
(20.5-51.1)
Monocytes % 12.5 H %
(1.7-9.3)
Chloride 97 L mmol/L
(98-107)
Carbon Dioxide 31 H mmol/L
(22-30)
BUN 21 H mg/dl
(9-20)
Glucose 104 H mg/dl
(70-99)
Alkaline Phosphatase 35 L U/L
(38-126)
Urine Ketones 1+ A
(Negative)
Ur Occult Blood Reflex 3+ A
(Negative)
Urine Bilirubin 1+ A
(Negative)
Urine RBC 3-6 A /HPF
(0-2)
Urine Albumin (Reflex) 1+ A
(Neg - Trace)
06/10/24 18:21
06/10/24 18:21
Vital Signs
Initial and Last Documented VS:
Initial Vital Signs
Temp Pulse Resp BP Pulse Ox
98.6 F 74 18 148/90 98
06/10/24 17:56 06/10/24 17:56 06/10/24 17:56 06/10/24 17:56 06/10/24 17:56
Last Documented Vital Signs
Temp Pulse Resp BP Pulse Ox
98.6 F 74 18 148/90 98
06/10/24 17:56 06/10/24 17:56 06/10/24 17:56 06/10/24 17:56 06/10/24 17:56
<MAREN Chan - Last Filed: 06/10/24 21:53>
Orders/Labs/Results
Orders:
Orders
06/10/24 18:06
CT Abd/pel Without Iv Or Oral Urgent
Comment:
Reason For Exam: R flank pain radiating to RLQ
06/10/24 18:21
Complete Blood Count/With Diff Urgent
Comprehensive Metabolic Panel Urgent
Lipase Urgent
Urinalysis Reflex To Culture Urgent
Date Specimen was Collected: 06/10/24
Time Specimen was Collected: 18:02
Urine Microscopic Reflex Cult Urgent
06/10/24 20:03
Acetaminophen [Tylenol] 1,000 mg PO NOW STA
Ketorolac [Toradol] 30 mg IV NOW STA
06/10/24 21:25
Ketorolac [Toradol] 30 mg .ROUTE .STK-MED ONE
06/10/24 21:26
Ketorolac [Toradol] 60 mg IM NOW STA
Abnormal Lab Results
06/10/24
18:21
WBC 11.1 H 10^3/uL
(4.8-10.8)
Absolute Neuts (auto) 8.2 H 10^3/uL
(1.4-6.5)
Absolute Monos (auto) 1.4 H 10^3/uL
(0.1-0.6)
Lymphocytes % 12.4 L %
(20.5-51.1)
Monocytes % 12.5 H %
(1.7-9.3)
Chloride 97 L mmol/L
(98-107)
Carbon Dioxide 31 H mmol/L
(22-30)
BUN 21 H mg/dl
(9-20)
Glucose 104 H mg/dl
(70-99)
Alkaline Phosphatase 35 L U/L
(38-126)
Urine Ketones 1+ A
(Negative)
Ur Occult Blood Reflex 3+ A
(Negative)
Urine Bilirubin 1+ A
(Negative)
Urine RBC 3-6 A /HPF
(0-2)
Urine Albumin (Reflex) 1+ A
(Neg - Trace)
06/10/24 18:21
06/10/24 18:21
WBC slightly elevated. Slight Dehydration. Urine negative for infection.
Vital Signs
Initial and Last Documented VS:
Initial Vital Signs
Temp Pulse Resp BP Pulse Ox
98.6 F 74 18 148/90 98
06/10/24 17:56 06/10/24 17:56 06/10/24 17:56 06/10/24 17:56 06/10/24 17:56
Last Documented Vital Signs
Temp Pulse Resp BP Pulse Ox
98.6 F 74 18 148/90 98
06/10/24 17:56 06/10/24 17:56 06/10/24 17:56 06/10/24 17:56 06/10/24 17:56
<MAREN Chan - Last Filed: 06/10/24 21:53>
MDM/Problems Addressed
Differential Diagnosis Includes:
Renal calculus, Chronic back pain.
MDM/Problems Addressed:
This is a 58 year old male that comes in with c/o right sided back pain and right sided abd pain. Stats that this started 2 weeks ago and yesterday it got worse.
Will check labs. CT scan. and medication for pain
CT cont- No sidewall or inguinal adenopathy. No inguinal hernia. A few tiny calcific foci are superimposed in the region of pancreatic head, suggesting chronic pancreatitis.
Back into see patient. Patient states that his pain is better. Explained that he has a 1mm stone in the kidney but this will not cause pain unless it tries to move. There is degenerative changes in the spine. HIs pain is most likely due to his back
issues. Patient to follow up with the family doctor or an therapeutic recreation specialist if his pain continues. Patient can use Tylenol and Ibuprofen for pain, heat or ice to the back which ever makes him feels better. Return with any concerns.
Chronic conditions affecting care:
Chronic back pain
Acute Exacerbation and/or Progression of Chronic Illness:
Chronic back
<MAREN Chan - Last Filed: 06/10/24 21:53>
*Radiology
Radiology exam reviewed: radiology read reviewed (CT-1mm nonobstructing right renal calculus. Small renal cysts. Somewhat difficult to follow the course of the right and left ureters. However, no ureteral distention or hydronephrosis, and no
findings to suggest obstructive uropathy. NO bladder calculus. Numerous pelvic calcific foci. Presumably), all reviewed NAD by ED Provider (CT cont- Phlebolith calcifications. There is no distended ureter identified extending to a focal calcific
density to suggest distal ureteral calculus. However, if indicated, follow up examination with intravenous contrast may be considered in the proper clinical stetting. Bowel evaluation is ) and other (CT cont- is limited by lack of oral contrast.
Mild colonic fecal burdern. No grossly distended bowel loops to suggest bowel obstruction. There is a structure in the right lower quadrant which appears to represent a normal appendix. Mild pelvic ascites. nonspecific. No focal collection or
abscess. )
*Pulse Oximetry
Patient hypoxic: no
*Senior Compliance Analyst Interpretation
Rate: Senior Compliance Analyst- N/A
*Critical Care Note
Total Time (30-74mins, 75-104mins- exclusive of procedures): Not Applicable
ED Attending Note
<Caryn Allan PA-C - Last Filed: 06/10/24 18:08>
-
Portions of this chart may have been created with voice recognition software.� Occasional wrong word or��sound alike� substitutions may have occurred due to the inherent limitations of voice recognition software.
Discharge Plan
Departure
Patient Disposition: Home (Routine Discharge)
Date of Disposition: 06/10/24
Time of Disposition: 21:46
Patient with high blood pressure during this ER visit?: Yes
Condition: Good
Covid-19: Not Applicable
Discharge Problem:
Low back pain
Instructions: Low back pain - ED discharge instructions, BLOOD PRESSURE
Prescriptions:
No Action
gabapentin 300 MG capsule
600 mg PO BID
naproxen sodium [Aleve] 220 MG tablet
220 mg PO Q12 PRN (Reason: pain/discomfort)
ibuprofen [Advil] 200 MG tablet
400 mg PO Q6 PRN (Reason: pain/discomfort)
ondansetron 4 MG tablet,disintegrating
4 mg PO TIDPRN PRN (Reason: NAUSEA) Qty: 15 0RF
Patient Comments:
pt states no longer takes
buprenorphine HCl 8 mg Tablet, Sublingual
8 mg SUBLINGUAL 3XD
clonazepam 1 mg Tablet
1 mg PO BID
Patient Comments:
pt reports sometimes takes an additional dose per day
clonazepam 1 mg Tablet
1 mg PO DAILY PRN (Reason: anxiety)
buspirone 10 mg Tablet
10 mg PO TID
gabapentin 300 mg Capsule
600 mg PO PRN PRN (Reason: neuropathic pain)
Patient Comments:
pt takes 600mg BID - sometimes needs an extra PRN dose to make TID
Rx Instructions:
600mg PRN once daily
tizanidine 4 mg Capsule
4 mg PO BID PRN (Reason: pain)
amoxicillin-pot clavulanate 875-125 mg tablet
1 tab PO Q12H 14 Days Qty: 28 0RF
Referrals:
Pavithra Alva, [Family Provider] - Call in 1-3 days for appt
Activity Restrictions/Additional Instructions:
As discussed, your blood work shows you are slightly Dehydrated. Please increase your water intake to 8-8oz glasses daily. Your Urine is negative for infection but there is some blood. Your CT shows that you have a very small stone in the right
kidney but this will not cause pain unless it start to move. You also have degenerative changes in the back. This maybe causing your discomfort. You may use Tylenol 1000mg every 6 hours for pain and Alternate with Ibuprofen 600mg every 6 hour with
food. Follow up with the family doctor for recheck. If you continues with pain you may need to see the Orhtopedic specialist. IF YOU HAVE ANY OTHER CONCERNS PLEASE RETURN TO THE EMERGENCY ROOM.
Interventions
Interventions:
*Risk Screen - Suicide Last Done: 06/10/24 17:56
*General Assessment Last Done: 06/10/24 17:56
*ED COVID-19 Vaccine History Last Done: 06/10/24 17:56
Discharge Date and Time
Print Language: [id number]
[2024-06-10 18:29] LABS: % Basophils 0.3 % (0-2); % Eosinophils 0.1 % (0-6); % Immature Granulocytes 0.3 % (0-0.5); % Lymphocytes 12.4 % (20.5-51.1); % Monocytes 12.5 % (1.7-9.3); % Neutrophils 74.4 % (42.2-75.2); Absolute Lymphocytes 1.4 10^3/uL (1.2-3.4); Absolute Monocytes 1.4 10^3/uL (0.1-0.6); Absolute Neutrophils 8.2 10^3/uL (1.4-6.5); Hematocrit 43.8 % (39.0-52.0); Hemoglobin 14.6 g/dL (13.0-18.0); Mean Corp Hgb Conc. 33.3 g/dL (33.0-37.0); Mean Corpuscular Hgb 30.2 pg (27.0-31.0); Mean Corpuscular Volume 90.5 fL (80.0-94.0); Mean Platelet Volume 9.7 fL (7.4-10.4); Nucleated Red Blood Cells % 0 % (-); Platelet Count 246 10^3/uL (130-400); Red Blood Cell Count 4.84 10^6/uL (4.70-6.10); White Blood Cell Count 11.1 10^3/uL (4.8-10.8)
[2024-06-10 18:31] LABS: Urine Albumin 1+ (Neg - Trace); Urine Bilirubin 1+ (Negative); Urine Character Clear (Clear); Urine Color Amber; Urine Glucose Negative (Negative); Urine Ketone 1+ (Negative); Urine Leukocyte Negative (Negative); Urine Nitrite Negative (Negative); Urine Occult Blood 3+ (Negative); Urine Specific Gravity 1.025 (<1.030); Urine Urobilinogen Negative (Neg - 1+)
[2024-06-10 18:43] LABS: ALT (SGPT) 24 U/L (0-50); AST (SGOT) 30 U/L (17-59); Albumin 4.6 g/dl (3.5-5.0); Alkaline Phosphatase 35 U/L (38-126); Blood Urea Nitrogen 21 mg/dl (9-20); Calcium 9.6 mg/dl (8.4-10.2); Carbon Dioxide 31 mmol/L (22-30); Chloride 97 mmol/L (98-107); Glucose 104 mg/dl (70-99); Potassium 4.3 mmol/L (3.5-5.1); Sodium 135 mmol/L (135-145); Total Protein 7.5 g/dl (6.3-8.2); eGFR > 60.00
[2024-06-10 18:44] LABS: Lipase 28 U/L (23-300)
[2024-06-10 18:48] LABS: Urine Mucus Moderate; Urine Squamous Cell 0-2 /LPF (Few)
[2024-06-10 18:50] LABS: Urine White Cell 0-2 /HPF (0-5)
[2024-06-10] MEDS: TYLENOL 1000 MG PO (21:23)
[2024-06-10] MEDS: TORADOL 60 MG IM (21:27)
== END 2024-06-10 22:53 | disposition home or self-care (01) ==
LOC: EMR 17:52
PROVIDERS: Physician Assistant; EMERGENCY PHYSICIAN Emergency Medicine; FAMILY PHYSICIAN Family Medicine
DX: M54.50 Low back pain, unspecified (principal); E86.0 Dehydration; N28.1 Cyst of kidney, acquired; F17.200 Nicotine dependence, unspecified, uncomplicated; I10 Essential (primary) hypertension; K21.9 Gastro-esophageal reflux disease without esophagitis; N20.0 Calculus of kidney
CPT/HCPCS: 96372; 99284; 74176; 80053; 81003; 81015; 83690; 85025